=== PATIENT | female | born 1985 | race African-American/Black ===

== ENCOUNTER 2024-06-19 17:41 | Emergency (ER) | payer MEDICAID, OTHER, SELFPAY ==
[2024-06-19] MEDS ORDERED: Ondansetron ODT 4 MG TAB ONE (18:10)
== END 2024-06-19 18:13 | disposition home or self-care (01) ==
LOC: CSHERS 17:41
DX: R11.2 Nausea with vomiting, unspecified (principal); R19.7 Diarrhea, unspecified; R10.9 Unspecified abdominal pain; F17.210 Nicotine dependence, cigarettes, uncomplicated
CPT/HCPCS: 99283; Q0162

== ENCOUNTER 2024-07-06 08:28 | Emergency (ER) | payer SELFPAY ==
[2024-07-06] MEDS ORDERED: Acetaminophen 500 MG TAB ONE (09:13)
== END 2024-07-06 10:27 | disposition home or self-care (01) ==
LOC: CSHERS 08:28
DX: B34.9 Viral infection, unspecified (principal); F17.210 Nicotine dependence, cigarettes, uncomplicated
CPT/HCPCS: 71045; 87081; 87428; 87430